=== PATIENT | female | born 1990 | race Caucasian/White ===

== ENCOUNTER 2019-12-15 01:33 | Outpatient (CLI) | payer BC, SELFPAY ==
--- NOTE | 2019-12-15 07:30 | DI.US_ITS ---
APPROVED REPORT EXAM: Comprehensive 2D, Doppler, and color-flow Echocardiogram Patient Location: Out-Patient Cake Stripper: Christel Ramirez RDCS (AE) Rhythm: NSR Indications: systolic murmur r01.1 Conclusion Left Ventricle : The left ventricle is normal size. Left ventricular systolic function is normal. Th ere is normal LV segmental wall motion. The left ventricular diastolic function is normal. LVEF is es timated to be 65-70%. Right Ventricle : The right ventricle is normal size. The right ventricular systolic function is nor mal. Non-mobile echogenic structure at apex of RV likely represents moderator band. Atria : The left atrium size is normal. The right atrium size is normal. Aortic Valve : Aortic valve is trileaflet. There is no aortic valvular stenosis. No aortic regurgitat ion is present. Mitral Valve : Mitral valve leaflets are mildly thickened, but open well. Trace to mild mitral regurg itation. No evidence of mitral valve stenosis. Tricuspid Valve : The tricuspid valve leaflets are very mildly thickened, but open well. Mild tricusp id regurgitation. Great Vessels : IVC is normal in size and collapses >50% with inspiration. There is no prior echocardiogram available for comparison. Wall motion Left Ventricle The left ventricle is normal size. Left ventricular systolic function is normal. There is normal left ventricular wall thickness. The posterior wall thickness is normal. The septum is normal. There is n ormal LV segmental wall motion. The left ventricular diastolic function is normal. LVEF is estimated to be 65-70%. Right Ventricle The right ventricle is normal size. The right ventricular systolic function is normal. Non-mobile ech ogenic structure at apex of RV likely represents moderator band. Atria The left atrium size is normal. The right atrium size is normal. Aortic Valve Aortic valve is trileaflet. There is no aortic valvular stenosis. No aortic regurgitation is present. Mitral Valve Mitral valve leaflets are mildly thickened, but open well. No evidence of mitral valve stenosis. Trac e to mild mitral regurgitation. Tricuspid Valve The tricuspid valve leaflets are very mildly thickened , but open well. Mild tricuspid regurgitation. Pulmonic Valve The pulmonary valve appears normal in structure. Trace pulmonic regurgitation. Great Vessels The aortic root is normal in size. The ascending aorta size is normal. IVC is normal in size and daiana apses >50% with inspiration. Pericardium There is no pericardial effusion. 2D Dimensions IVSd 0.80 cm F: 0.6-1.0 LV EDV A2C 102.4 mL PWd 0.75 cm F: 0.6 - 1.0 LV EDV A4C 99.6 mL LVDd 4.60 cm F: 3.8 - 5.2 LA Volume Index Biplane 25.1 mL/m2 LVDs 3.15 cm F: 2.2 - 3.5 LA Area A4C 16.30 cm2 Aortic Root 2.70 cm F: 2.7 - 3.3 LA Area A2C 15.08 cm2 RVID Base (AP4) 3.19 cm (M/F) 2.5-4.1 EF AP4 68.6 % RA Area A4C 12.10 cm2 EF AP2 69.4 % LVOT 1.90 cm (M/F) 1.5-2.5 EF BP 69.1 % Ascending Aorta 2.39 cm F: 2.3 - 3.1 IVC 1.65 cm LVEF (Teich) 59.6 % TAPSE 2.06 cm (M/F) <1.7 LVEF ([facility]-Baptiste's) 69.14 % F: 54 - 74 LV Volume 80.63 mL F: 46 - 106 LV Volume Index 46.60 mL/m2 F: 29 - 61 FS 31.55 % LV Diastology MV E' medial 0.184 (>0.07 m/s) E/A Ratio 2.9 LV E/e MED 6.30 (<14) PV S/D Ratio 0.89 MV E' lateral 0.234 (>0.1 m/s) A-A Duration 118.79 msec LV E/e LAT 4.95 (<14) TR Peak Velocity 2.35 m/s Pulm Vein s 0.59 m/s Pulm Vein d 0.66 m/s Pulm Vein a 0.28 m/s LA vol/ BSA A2C s A-L 21.6 mL/m2 LA vol/ BSA A4C s A-L 27.2 mL/m2 Aortic Valve LVOT Area 2.94 cm2 AoV Area Vmax 2.26 cm2 LVOT Vmax 1.06 m/s AoV Area/ BSA (Vmax) 1.31 cm2/m2 LVOT Mean José Antonio. 0.84 m/s ALL Mean José Antonio. 2.35 cm2 LVOT Peak Gr. 4.5 mmHg ALL Mean José Antonio. Index 1.36 cm2/m2 LVOT Mean Gr. 3.0 mmHg LVOT VTI 0.236 m AoV Vmax 1.38 (0.5-1.3 m/s) AoV Mean José Antonio. 1.05 m/s AoV Peak Grad 7.6 mmHg LVOT SV 69.24 mL AoV Mean Grad 4.7 (<5 mmHg) AoV VTI 0.315 (0.18-0.25 m) AoV Area VTI 2.20 (2.5-4.5 cm2) AoV Area/ BSA (VTI) 1.27 cm/m2 Mitral Valve MV E Max José Antonio. 1.17 (0.4-1.3 m/s) MVA VTI 5.09 (4.0-6.0 cm2) MV A Velocity 0.40 (0.4-1.3 m/s) RVOT Peak Gr. 3.25 mmHg E/A Ratio 2.59 RVOT Mean Gr. 1.95 mmHg MV Decel. Time 195 (160-240 msec) MV PHT 56 msec MVA PHT 3.85 cm2 PV Peak Velocity 1.13 (0.5-1.5 m/s) RVOT Peak José Antonio. 0.90 m/s RVOT VTI 0.200 m Tricuspid Valve TR P. Gradient 22.0 mmHg TV Regurg Vmax 2.35 m/s RAP Estimate 3.00 mmHg RVSP 25.0 mmHg
== END 2019-12-15 01:53 ==
PROVIDERS: PCP Nurse Practitioner Family; Visit Provider Nurse Practitioner Family
DX: R01.1 Cardiac murmur, unspecified (principal); I36.8 Other nonrheumatic tricuspid valve disorders
CPT/HCPCS: 93306

== ENCOUNTER 2020-09-17 16:43 | Outpatient (REF) | payer BC, SELFPAY ==
[2020-09-21 09:11] LABS: Patient Race White; SARS-CoV-2 RNA Undetected (Undetected); SARS-CoV-2 Specimen Source Nasal
== END 2020-09-17 17:03 ==
LOC: NCHCN 16:43
PROVIDERS: PCP Nurse Practitioner Family; Visit Provider Nurse Practitioner Family
DX: R19.7 Diarrhea, unspecified (principal)
CPT/HCPCS: U0003

== ENCOUNTER 2021-12-13 16:05 | Outpatient (REF) | payer BC, SELFPAY ==
--- NOTE | 2021-12-13 14:25 | PAPFT_PTH ---
PATIENT: Wendy Ledesma LOC: [facility]#:[id number] AGE/SX: 31/F ROOM: RE12/13/[address]: Ana Saenz : 1990 BED: DIS: 12/13/2021 SPEC #: [id number] RECD: 12/16/21 12:49 STATUS: ROLAND REKain #: [id number] RONI: 12/13/21 14:[address]: Ana Saenz DEPT: [facility] Cytology RECD BY: Emilia Biswas Tissues: 1 - CX/ENDOCX FOR PAP SMEARS Procedures: PAP THIN PREP/[facility] Screening HPV DNA PROBE Comments: [id number] (CHLAMYDIA/GC)
[2022-01-06 17:16] LABS: Chlamydia Result Negative (Negative); GC Result Negative (Negative)
== END 2021-12-13 16:06 | disposition home or self-care (01) ==
LOC: NCHCN 16:05
PROVIDERS: PCP Nurse Practitioner Family; Visit Provider Nurse Practitioner Family
DX: Z12.4 Encounter for screening for malignant neoplasm of cervix (principal); Z11.51 Encounter for screening for human papillomavirus (HPV); Z11.3 Encounter for screening for infections with a predominantly sexual mode of transmission
CPT/HCPCS: 87491; 87591; 88142; 87624

== ENCOUNTER 2022-02-18 16:37 | Outpatient (REF) | payer BC, SELFPAY ==
[2022-02-18 21:17] LABS: HCT 36.3 % (36.0-46.0); HGB 12.1 g/dL (11.2-15.7); MCHC 33.3 % (32.0-36.0); MCV 93.1 fL (80-95); MPV 9.8 fL (8.0-11.0); Platelet Count 424 10^3/uL (130-400); RDW 12.3 % (11.7-14.6); RDW-SD 42.5 fL; WBC 8.48 10^3/uL (4.4-10.8)
[2022-02-18 21:35] LABS: Iron 25 ug/dL (50-170); Total Iron Binding Capacity 348 ug/dL (250-450); Transferrin Sat 7 % (15-50)
== END 2022-02-18 16:38 | disposition home or self-care (01) ==
LOC: NCHCN 16:37
PROVIDERS: PCP Nurse Practitioner Family; Visit Provider Nurse Practitioner Family
DX: N92.6 Irregular menstruation, unspecified (principal)
CPT/HCPCS: 85027; 83540; 83550; 84443

== ENCOUNTER 2022-06-03 16:13 | Outpatient (REF) | payer OTHER, SELFPAY ==
[2022-06-03 15:24] LABS: HCT 43.3 % (36.0-46.0); HGB 14.8 g/dL (11.2-15.7); MCH 31.4 pg (27.0-33.0); MCHC 34.2 % (32.0-36.0); MCV 92 fL (80-95); MPV 9.8 fL (8.0-11.0); Platelet Count 367 10^3/uL (130-400); RBC 4.72 10^6/uL (3.93-5.22); RDW 12.5 % (11.7-14.6); RDW-SD 42.3 fL; WBC 6.19 10^3/uL (4.4-10.8)
[2022-06-03 15:42] LABS: Iron 133 ug/dL (50-170); Total Iron Binding Capacity 324 ug/dL (250-450); Transferrin Sat 41 % (15-50)
== END 2022-06-03 16:14 | disposition home or self-care (01) ==
LOC: NCHCN 16:13
PROVIDERS: PCP Nurse Practitioner Family; Visit Provider Nurse Practitioner Family
DX: N92.6 Irregular menstruation, unspecified (principal); R01.1 Cardiac murmur, unspecified
CPT/HCPCS: 85027; 83540; 83550